=== PATIENT | female | born 1950 | race Caucasian/White ===

== ENCOUNTER 2022-04-27 06:03 | Day surgery (SDC) | payer MEDICARE ==
[~2022-04-27] VITALS: Ht 177.8 cm; Wt 83.9 kg
[~2022-04-27 06:03] MED LIST: BSS IRRIG/VANCO(10MG)/TOBRA(5MG)/EPINEPH(1:1000-0.5CC)500ML BAG-ORONLY IR ONE; CYCLOPENTOLATE 1% OPHTH SOLN 2 ML BTL OS SCH; D200CAP3 PO; ELIQ5TAB PO; LIDOCAINE 3.5 % 1ML OPHTH TOPICAL GEL OU ONE; LISI5TAB11 PO; METO1TAB87 PO; OFLOXACIN 0.3 % (OCUFLOX) OPTH SOL 5ML OS ONE; PHENYLEPHRINE 2.5% OPHTH SOL 2ML OS SCH; PHENYLEPHRINE HCL 10 % OPHTH. SOL 5ML OS PRN; TROPICAMIDE 1% OPHTH SOLN 2ML OS SCH
[2022-04-27] MEDS ORDERED: LIDOCAINE 1% SDV 5ML VIAL As Ordered ONE (06:38)
[2022-04-27] MEDS ORDERED: CEFUROXIME 1MG/0.1ML INTRACAMERAL INJ As Ordered ONE (06:38)
[2022-04-27] MEDS ORDERED: MIDAZOLAM INJ 2MG/2ML VIAL (J2250 PER 1MG) As Ordered ONE ×2 (07:31→08:29)
[2022-04-27 08:18] VITALS: BP 146/97
[2022-04-27] MEDS ORDERED: fentaNYL 100 MCG/2 ML INJECTION As Ordered ONE (08:29)
== END 2022-04-27 08:44 | disposition home or self-care (01) ==
LOC: M SDC 06:03
PROVIDERS: ATTEND Ophthalmology
DX: H25.12 Age-related nuclear cataract, left eye (principal); I48.91 Unspecified atrial fibrillation; I10 Essential (primary) hypertension; K21.9 Gastro-esophageal reflux disease without esophagitis; Z79.01 Long term (current) use of anticoagulants; Z79.899 Other long term (current) drug therapy; Z88.8 Allergy status to other drugs, medicaments and biological substances
CPT/HCPCS: 66984; J0697; J2250; J3010; V2632

== ENCOUNTER 2022-12-16 09:57 | Day surgery (SDC) | payer MEDICARE ==
[~2022-12-16] VITALS: Ht 167.6 cm; Wt 84.8 kg
[~2022-12-16 09:57] MED LIST changes: +ATOR40TA75 PO; +CEFUROXIME 1MG/0.1ML INTRACAMERAL INJ As Ordered ONE; -CYCLOPENTOLATE 1% OPHTH SOLN 2 ML BTL OS SCH; +LIDOCAINE 1% SDV 5ML VIAL As Ordered ONE; +LISI20TA33 PO; +OFLOXACIN 0.3 % (OCUFLOX) OPTH SOL 5ML OD ONE; -OFLOXACIN 0.3 % (OCUFLOX) OPTH SOL 5ML OS ONE; +PHENYLEPHRINE 10% OPHTH SOL 5ML OD PRN; -PHENYLEPHRINE 2.5% OPHTH SOL 2ML OS SCH; -PHENYLEPHRINE HCL 10 % OPHTH. SOL 5ML OS PRN; -TROPICAMIDE 1% OPHTH SOLN 2ML OS SCH
[2022-12-16] MEDS ORDERED: fentaNYL 100 MCG/2 ML INJECTION As Ordered ONE (10:13)
[2022-12-16] MEDS ORDERED: MIDAZOLAM INJ 2MG/2ML VIAL As Ordered ONE (10:13)
[2022-12-16] MEDS: TROPICAMIDE 1% OPHTH SOLN 15ML OD SCH (10:26)
[2022-12-16] MEDS: CYCLOPENTOLATE 1% OPHTH SOLN 2ML BTL OD SCH (10:26)
[2022-12-16] MEDS: PHENYLEPHRINE 2.5% OPHTH SOL 2ML OD SCH (10:26)
[2022-12-16 11:28] VITALS: BP 144/88; TEMP 96.5; O2SAT 96
== END 2022-12-16 12:17 | disposition home or self-care (01) ==
LOC: M SDC 09:57
PROVIDERS: ATTEND Ophthalmology
DX: H25.11 Age-related nuclear cataract, right eye (principal); I10 Essential (primary) hypertension; I48.91 Unspecified atrial fibrillation; E78.5 Hyperlipidemia, unspecified; K21.9 Gastro-esophageal reflux disease without esophagitis; Z79.01 Long term (current) use of anticoagulants; Z79.82 Long term (current) use of aspirin; Z79.899 Other long term (current) drug therapy
CPT/HCPCS: 66984; J0697; J2250; J3010; V2632